=== PATIENT | female | born 1995 | race Hispanic/Latino ===

== ENCOUNTER 2019-07-24 13:51 | Day surgery (SDC) | payer OTHER ==
[2019-07-24] MEDS ORDERED: hydrALAZINE 20 MG/ML VIAL SLOW IVP PRN (15:08)
[2019-07-24 16:09] VITALS: BMI 32.1
[2019-07-24 16:28] LABS: Bacteria/HPF None Seen HPF (None Seen); Bilirubin Negative (Negative); Blood, Urine Negative (Negative); Clarity Clear (Clear); Glucose, Urine (Dipstick) Normal (Negative); Leukocyte Negative Leu/uL (Negative); Nitrite Negative (Negative); Protein, Urine (Dipstick) 10 mg/dL (Neg-Trace); RBC/HPF 0-3 HPF (0-3); Squamous Epithelial 0-3 HPF (0-3); Urobilinogen Normal mg/dL (Less than 2); WBC/HPF 0-3 HPF (0-3)
--- NOTE | 2019-07-25 11:50 | SS ---
DATE OF ADMISSION: 07/24/2019 DATE OF DISCHARGE: 07/24/2019 REGULAR PHYSICIAN: José Perdomo DO, MS. EVALUATING PHYSICIAN: Ajit Zacarias MD. CHIEF COMPLAINT: Possible contractions at home. HISTORY OF PRESENT ILLNESS: Ms. Fadi Werner is a 23-year-old G4, P2 with an estimated date of confinement of 08/31/2019, who presents complaining of lower abdominal pressure and possible contractions over the last several days. She was seen by Dr. Perdomo with similar complaints yesterday and was told to come to Labor and Delivery should they continue. She denies associated rupture of membranes, vaginal bleeding, or change in bowel or bladder habits. PAST OBSTETRICAL HISTORY: Includes 2 previous sections, the first of which was for failure to progress. PAST MEDICAL HISTORY: None. PAST SURGICAL HISTORY: x2 as above. CURRENT MEDICATIONS: vitamins. ALLERGIES: NO KNOWN ALLERGIES. SOCIAL HISTORY: Denies tobacco, alcohol, or drug use. FAMILY HISTORY: Unremarkable. REVIEW OF SYSTEMS: Denies nausea, vomiting, fever, chills, ruptured membranes, or vaginal bleeding. PHYSICAL EXAMINATION: VITAL SIGNS: In triage, her vital signs are stable. She is afebrile. GENERAL: She is pleasant, in no acute distress. ABDOMEN: Exam shows the abdomen to be gravid with no guarding or rebound. PELVIC: Examination shows the cervix to be closed, thick, soft but high. heart rate tracing is reassuring. Spontaneous accelerations are seen. No decelerations were seen. No significant uterine contractions were seen. LABORATORY STUDIES: Urinalysis shows a specific gravity of 1.015 with trace protein, negative ketones, negative blood, negative nitrites, negative leukocyte esterase. On microscopic, there is 0-3 rbc's, 0-3 wbc's, 0-3 squamous cells, and no bacteria seen. ASSESSMENT: 1. 34-4/7th week intrauterine . 2. No evidence of labor at this time. PLAN: The patient will be dismissed to home. labor precautions were again reviewed with her in detail. She was encouraged to rest at home and hydrate herself well. She will follow up with Dr. Perdomo as instructed. Job ID: [id number]
== END 2019-07-24 17:40 | disposition home or self-care (01) ==
LOC: L&D/OP 13:51
PROVIDERS: ATTEND Obstetrics & Gynecology
DX: O99.89 Other specified diseases and conditions complicating pregnancy, childbirth and the puerperium (principal); R10.30 Lower abdominal pain, unspecified; O34.219 Maternal care for unspecified type scar from previous cesarean delivery; Z3A.34 34 weeks gestation of pregnancy
CPT/HCPCS: 81003; 99282

== ENCOUNTER 2019-08-24 09:27 | Outpatient (CLI) | payer OTHER ==
[2019-08-25 11:37] LABS: SARS-CoV-2 MS2 Positive; SARS-CoV-2 N Gene Negative; SARS-CoV-2 S Gene Negative; SARS-CoV-2 orf1ab Negative
== END 2019-08-24 09:28 | disposition home or self-care (01) ==
LOC: SCSLAB 09:27
PROVIDERS: ATTEND Obstetrics & Gynecology
DX: Z01.812 Encounter for preprocedural laboratory examination (principal); Z11.59 Encounter for screening for other viral diseases
CPT/HCPCS: 87635; U0003

== ENCOUNTER 2019-08-28 04:13 | Inpatient (IN) | payer MEDICAID, OTHER, SELFPAY ==
[2019-08-28] MEDS ORDERED: hydrALAZINE 20 MG/ML VIAL SLOW IVP PRN ×2 (04:49→11:03)
[2019-08-28] MEDS ORDERED: Ondansetron PF 4 MG/2 ML Vial IVP PRN ×3 (04:49→11:03)
[2019-08-28] MEDS ORDERED: CEFAZOLIN 2 GM in Premix Bag 1 BAG IVPB SCH (04:49)
[2019-08-28] MEDS ORDERED: Promethazine HCl 25 MG/ML VIAL IM PRN ×2 (04:49→07:05)
[2019-08-28] MEDS ORDERED: Bicitra 30 ML UDCUP PO SCH (04:49)
[2019-08-28 04:58] VITALS: BMI 35.7
[2019-08-28] MEDS: Lactated Ringer's 1,000 ML IV SCH ×2 (05:25→06:43)
[2019-08-28 05:47] LABS: Hemoglobin 13.7 g/dL (12.0-16.0); Mean Corpuscular HGB CONC 34.7 g/dL (32.0-36.0); Mean Corpuscular Hemoglobin 30.4 pg (27.0-31.0); Mean Corpuscular Volume 87.5 fL (78.0-98.0); Mean Platelet Volume 8.2 fL (7.4-10.4); Platelet Count 219 thou/uL (130-400); RBC Distribution Width 12.7 % (11.5-14.5); Red Blood Cell (RBC) Count 4.53 mill/uL (4.20-5.40)
[2019-08-28 06:28] LABS: HBSAg Index 0.17 S/CO (0-0.99); Hep B Surf Ag Non-Reactive S/CO (NonReactive)
[2019-08-28 06:29] LABS: Syphilis Antibody Nonreactive (Nonreactive); Syphilis Antibody Index 0.02 S/CO (<1.00 Non-Reactive)
[2019-08-28] MEDS ORDERED: MORPHINE 5 MG/10 ML PF VIAL ONE (06:51)
[2019-08-28] MEDS ORDERED: Ketorolac Tromethamine 30 MG/ML VIAL ONE (06:52)
[2019-08-28] MEDS ORDERED: Ondansetron PF 4 MG/2 ML Vial ONE (06:52)
[2019-08-28] MEDS ORDERED: PHENYLEPHRINE-NS 100 MCG/ML 10 ML SYRINGE ONE (06:52)
[2019-08-28] MEDS ORDERED: Oxytocin 10 UNITS/ML VIAL ONE ×2 (06:52→08:08)
[2019-08-28] MEDS ORDERED: EPHEDRINE 25 MG/5 ML SYRINGE ONE (06:52)
[2019-08-28] MEDS ORDERED: L&D-Morphine 4 MG/ML VIAL SLOW IVP PRN (07:05)
[2019-08-28] MEDS ORDERED: Naloxone HCl 0.4 mg/ml Vial IV PRN (07:05)
[2019-08-28] MEDS ORDERED: Ondansetron HCl/PF 4 MG/2 ML Vial IVP PRN (07:05)
[2019-08-28] MEDS ORDERED: Meperidine HCl/PF 25 MG/ML VIAL SLOW IVP PRN (07:05)
[2019-08-28] MEDS ORDERED: HYDROmorphone 2 MG/ML VIAL SLOW IVP PRN (07:05)
[2019-08-28] MEDS ORDERED: Promethazine HCl 25 MG SUPP PR PRN (07:05)
[2019-08-28] MEDS ORDERED: diphenhydrAMINE 50 MG/ML VIAL IVP PRN (07:05)
[2019-08-28] MEDS ORDERED: Naloxone HCl 0.4 mg/ml Vial IVP PRN ×2 (07:05)
[2019-08-28] MEDS ORDERED: Ketorolac Tromethamine 30 MG/ML VIAL IVP SCH (07:15)
[2019-08-28] MEDS ORDERED: Communication Order-Pharmacy FS SCH (07:15)
[2019-08-28] MEDS ORDERED: diphenhydrAMINE 25 MG CAP PO PRN (11:03)
[2019-08-28] MEDS ORDERED: HYDROcodone/Acetaminophen 5/325 mg Tablet PO PRN ×2 (11:03)
[2019-08-28] MEDS ORDERED: Bisacodyl 10 MG SUPP PR PRN (11:03)
[2019-08-28] MEDS ORDERED: Lanolin Ointment 7 GM TUBE TOP PRN (11:03)
--- NOTE | 2019-08-28 11:42 | OP ---
DATE OF PROCEDURE: 08/28/2019 PREOPERATIVE DIAGNOSES: 1. A 24-year-old G4, P2-0-1-2 at 39+ weeks. 2. Previous section x2. POSTOPERATIVE DIAGNOSES: 1. A 24-year-old G4, P2-0-1-2 at 39+ weeks. 2. Previous section x2. ASSISTANTS: 1. Zo Hodges MD. 2. Meri Saleh MD. ANESTHESIA: Spinal. ANESTHESIOLOGIST: Dr. Greenwood. ESTIMATED BLOOD LOSS: 500 mL. COMPLICATIONS: None. OPERATIVE FINDINGS: 1. Normal uterus, tubes, and ovaries bilaterally. 2. Low transverse hysterotomy without extension. 3. Vigorous female , Apgars and weight pending at the time of dictation. 4. Surgical sites hemostatic. PROCEDURE IN DETAIL: The patient was taken back to the OR with IV fluids running. Once she was in the OR, spinal anesthesia was obtained. After anesthesia was obtained, the patient was placed in dorsal supine position with a left lateral tilt. SCDs were placed on the lower extremities. 2 g Ancef were administered and a Lovelace catheter was placed using sterile technique. The abdomen was then prepped and draped in normal fashion for section. Surgeons were gowned and gloved. Anesthesia was tested and found to be adequate. A Pfannenstiel skin incision was made with a scalpel. This incision was carried down through subcutaneous tissue to the fascia. When the fascia was reached, it was incised superolaterally with curved Lewis scissors. Jackeline clamps were placed at the superior border of the fascia, which was sharply and bluntly dissected off the rectus abdominis muscles. This was repeated at the inferior border of the fascia down to the level of the pubic symphysis. The rectus muscles were bluntly . The peritoneum was bluntly entered in the midline, stretched laterally. An Luis Alberto O retractor was placed into the abdominal cavity for retraction, visualization, and protection of the wound. A bladder flap was created and dissected away from the planned hysterotomy site. A low-transverse hysterotomy was made with the scalpel. Hysterotomy was bluntly entered and stretched using the Morales maneuver. Thinly stained meconium fluid was noted. The was delivered without difficulty through the hysterotomy. The nose and mouth were suctioned. The cord was doubly clamped and cut. The infant was handed off to the nursery team in attendance. Cord blood was collected. The placenta was delivered. The filmy adhesions of the membranes were noted at the inferior aspect of the lower uterine segment. These were removed with ring forceps and gentle curettage with a clean dry sponge. The uterus was firm and replaced into the abdominal cavity. The hysterotomy was then closed in a running locked fashion. A 2nd imbricating layer was placed. Hemostasis was noted after an additional suture at the left corner was made with a lzebac-[id number] stitch. After hemostasis was noted, the hysterotomy and paracolic gutters were irrigated and suctioned dry. Hysterotomy was inspected again with no bleeding noted. The Luis Alberto O retractor was removed from the abdominal cavity. The rectus fascia and muscle were inspected with no bleeding noted. The rectus fascia was reapproximated from corner to corner and tied together in the midline. Subcutaneous tissue was irrigated, dried, and reapproximated with plain gut suture. The skin was closed with 4-0 Monocryl and dressed with Dermabond dressing. The patient tolerated the procedure well. Counts were correct x2. There were no complications. Job ID: [id number]
[2019-08-28] MEDS: Ibuprofen 800 MG TAB PO SCH ×2 (14:21→23:56)
[2019-08-28] MEDS: Ketorolac Tromethamine 30 MG/ML VIAL IVP PRN ×2 (14:24→21:29)
[2019-08-28] MEDS: Docusate Calcium (SURFAK) 240 MG CAP PO SCH (21:30)
[2019-08-28] MEDS: Simethicone Chewable 80 MG TAB PO PRN (21:30)
[2019-08-28] MEDS: Ferrous Sulfate 325 MG TAB PO SCH (23:56)
[2019-08-29] MEDS: Simethicone Chewable 80 MG TAB PO PRN (04:14)
[2019-08-29] MEDS: Ibuprofen 800 MG TAB PO SCH ×3 (04:15→21:24)
[2019-08-29 05:52] LABS: Hemoglobin 11.4 g/dL (12.0-16.0); Mean Corpuscular HGB CONC 34.3 g/dL (32.0-36.0); Mean Corpuscular Hemoglobin 30.5 pg (27.0-31.0); Mean Corpuscular Volume 88.8 fL (78.0-98.0); Mean Platelet Volume 7.6 fL (7.4-10.4); Platelet Count 198 thou/uL (130-400); RBC Distribution Width 12.7 % (11.5-14.5); Red Blood Cell (RBC) Count 3.75 mill/uL (4.20-5.40); White Blood Cell (WBC) Count 12.3 thou/uL (4.8-10.8)
[2019-08-29] MEDS: Ferrous Sulfate 325 MG TAB PO SCH ×2 (09:28→22:18)
[2019-08-29] MEDS: Docusate Calcium (SURFAK) 240 MG CAP PO SCH ×2 (09:28→21:24)
[2019-08-29] MEDS: Prenatal Vitamin 1 TAB PO SCH (09:28)
[2019-08-29] MEDS ORDERED: Adacel (T-DAP) 0.5 ML SYRINGE IM ONE (11:03)
--- NOTE | 2019-08-29 12:39 | PDOC.PP ---
Post Progress Note Post Day #: 1 Subjective: doing well, tolerating regular diet, minimal pain PO intake tolerated: yes Flatus: yes Ambulation: yes Vital Signs (12 hours) Temp Pulse Resp BP Pulse Ox 08/29/19 12:00 98.6 F 92 18 110/64 08/29/19 07:30 98.7 F 81 20 110/59 L 95 08/29/19 04:15 99.9 F H 92 16 126/72 Weight Weight 183 lb - Physical Examination General: NAD Respiratory: non-labored breathing Abdominal: no distention Skin: CS incision dry & intact Neurological: no gross focal deficits Psychiatric: A&Ox3, normal affect Result Diagrams: 08/29/19 05:28 Additional Labs: Post Labs Blood Type A POSITIVE 08/28/19 05:53 Hep Bs Antigen Non-Reactive S/CO (NonReactive) 08/28/19 05:29 (1) 39 weeks gestation of Code(s): Z3A.39 - 39 WEEKS GESTATION OF Status: Acute (2) Previous section Code(s): Z98.891 - HISTORY OF UTERINE SCAR FROM PREVIOUS SURGERY Status: Acute - Assessment/Plan POD1 doing well, no concerns, likely DC tomorrow.
[2019-08-30] MEDS: Ibuprofen 800 MG TAB PO SCH (05:58)
--- NOTE | 2019-08-30 08:09 | PDOC.PP ---
Post Progress Note Post Day #: 2 Subjective: doing well, no concerns, min pain PO intake tolerated: yes Flatus: yes Ambulation: yes Vital Signs (12 hours) Temp Pulse Resp BP Pulse Ox 08/30/19 04:45 98.9 F 81 16 120/70 08/29/19 23:55 98.8 F 88 16 117/56 L 08/29/19 20:10 98.8 F 94 16 117/70 97 Weight Weight 183 lb - Physical Examination General: NAD Respiratory: non-labored breathing Abdominal: no distention Skin: CS incision dry & intact Psychiatric: A&Ox3, normal affect Result Diagrams: 08/29/19 05:28 Additional Labs: Post Labs Blood Type A POSITIVE 08/28/19 05:53 Hep Bs Antigen Non-Reactive S/CO (NonReactive) 08/28/19 05:29 (1) 39 weeks gestation of Code(s): Z3A.39 - 39 WEEKS GESTATION OF Status: Acute (2) Previous section Code(s): Z98.891 - HISTORY OF UTERINE SCAR FROM PREVIOUS SURGERY Status: Acute - Assessment/Plan POD2 doing well after scheduled RCS. Plan for DC today.
[2019-08-30 08:26] VITALS: BP 110/70; TEMP 98.7
[2019-08-30] MEDS: Ferrous Sulfate 325 MG TAB PO SCH (09:23)
[2019-08-30] MEDS: Docusate Calcium (SURFAK) 240 MG CAP PO SCH (09:25)
[2019-08-30] MEDS: Prenatal Vitamin 1 TAB PO SCH (09:25)
== END 2019-08-30 10:02 | disposition home or self-care (01) | DRG 788 ==
LOC: L&D 04:13 → 3SW 11:20
PROVIDERS: ADMIT Obstetrics & Gynecology; ATTEND Obstetrics & Gynecology
PROC: 10D00Z1 Extraction of Products of Conception, Low, Open Approach (ICD-10-PCS; principal; 2019-08-28)
DX: O34.211 Maternal care for low transverse scar from previous cesarean delivery (principal); Z3A.39 39 weeks gestation of pregnancy; Z37.0 Single live birth; O77.0 Labor and delivery complicated by meconium in amniotic fluid; O99.89 Other specified diseases and conditions complicating pregnancy, childbirth and the puerperium; N73.6 Female pelvic peritoneal adhesions (postinfective)
CPT/HCPCS: 36415; 51702; 85027; 86780; 86850; 86900; 86901; 87340; J0690; J1885; J2274; J2405; J2590